=== PATIENT | female | born 1990 | race Caucasian/White ===

== ENCOUNTER 2019-06-29 22:02 | Emergency (ER) | payer OTHER ==
[~2019-06-29] VITALS: Ht 152.4 cm; Wt 45.8 kg
[2019-06-29 22:09] VITALS: Ht 152.4 cm; Wt 45.8 kg
[2019-06-29 23:16] LABS: BASOPHIL % 0.6 % (0-2); CALCIUM 8.7 mg/dL (8.5-10.1); CARBON DIOXIDE 27.1 mmol/L (21-32); CHLORIDE SERUM 105 mmol/L (98-107); CREATININE SERUM 0.7 mg/dL (0.6-1.0); GFR1 > 60 mL/min; GLUCOSE SERUM 110 mg/dL (74-106); PLATELET COUNT 195 x10^3mcL (130-400); POTASSIUM SERUM 3.6 mmol/L (3.5-5.1); RED CELL DISTRIBUTION WIDTH 14.4 % (11.5-14.5); SODIUM SERUM 142 mmol/L (136-145)
[2019-06-29 23:21] LABS: ALBUMIN 3.8 g/dL (3.4-5.0); ALKALINE PHOSPHATASE 69 U/L (46-116); ALT/SGPT 17 U/L (14-59); AST/SGOT 10 U/L (15-37); BILIRUBIN TOTAL 0.2 mg/dL (0.20-1.00); LIPASE 248 IU/L (73-393); TOTAL PROTEIN, SERUM 7.4 g/dL (6.4-8.2)
[2019-06-30 02:54] VITALS: BP 113/64
== END 2019-06-30 03:00 | disposition home or self-care (01) ==
LOC: ED 22:02
PROVIDERS: Emergency Medicine
DX: R00.2 Palpitations (principal); R53.1 Weakness; Z88.0 Allergy status to penicillin
CPT/HCPCS: 36415; 83880; 85378; J7030